=== PATIENT | male | born 1970 | race Caucasian/White ===

== ENCOUNTER 2019-02-13 03:44 | Inpatient (IN) | payer MEDICAID ==
--- NOTE | 2019-02-13 03:56 | C.PDOC ---
History Of Present Illness 48-year-old male presents to the emergency department with complaints of chest pain that started an hour prior to arrival. Patient qualifies the pain as a pressure towards the left side of his chest radiating into his left arm, assoc iated with mild shortness of breath. Patient noted recent intermittent occurrences of these symptoms over the past couple of days. EMS arrived on scene and noted ST elevation in V1 -V3 as well as depressions in 2, 3. Patient was given 325 MG aspirin as well as nitro x 3 with resolution of the pain. Patient noted the pain was initially 7 out of 10. Patient denies trauma, fall, recent surgery, or leg swelling. Time Seen by Provider: 02/13/19 03:51 Chief Complaint (Nursing): Chest Pain History Per: Patient History/Exam Limitations: no limitations Onset/Duration Of Symptoms: Days Current Symptoms Are (Timing): Still Present Quality: "Pain" Associated Symptoms: Dyspnea Past Medical History Reviewed: Historical Data, Nursing Documentation, Vital Signs - Medical History PMH: HTN, Hypercholesterolemia Surgical History: No Surg Hx Family History: States: No Known Family Hx - Social History Hx Alcohol Use: No Hx Substance Use: No - Immunization History Hx Tetanus Toxoid Vaccination: Yes Hx Influenza Vaccination: No Hx Pneumococcal Vaccination: No Review Of Systems Constitutional: Negative for: Fever, Chills Cardiovascular: Positive for: Chest Pain Respiratory: Positive for: Shortness of Breath. Negative for: Cough Gastrointestinal: Negative for: Nausea, Vomiting, Diarrhea Musculoskeletal: Negative for: Neck Pain, Shoulder Pain, Back Pain, Hand Pain Neurological: Negative for: Weakness, Numbness Physical Exam - Physical Exam Appears: Non-toxic, No Acute Distress Skin: Normal Color, Warm, Dry Head: Atraumatic, Normacephalic Eye(s): bilateral: Normal Inspection, PERRL, EOMI Nose: Normal Oral Mucosa: Moist Neck: Normal, Supple Chest: Symmetrical, No Tenderness Cardiovascular: Rhythm Regular (tachycardic), No Murmur Respiratory: Normal Breath Sounds, No Rales, No Rhonchi, No Wheezing Gastrointestinal/Abdominal: Soft, No Tenderness, No Guarding, No Rebound Extremity: Normal ROM Pulses: Left Radial: Normal, Right Radial: Normal Neurological/Psych: Oriented x3, Normal Speech, Normal Cognition ED Course And Treatment - Laboratory Results Result Diagrams: 02/15/19 05:58 02/15/19 05:58 Interpretation Of ECG: Sinus tachycardia at 105bpm. ST elevation in V1, V2. When compared to previous EKG performed by medics prior to aspirin being given, ST elevation in V1-V3 with depression in 2,3. Medical Decision Making Medical Decision Making: Impression: STEMI EKG: Sinus tachycardia at 105bpm. ST elevation in V1, V2. When compared to previous EKG performed by medics prior to aspirin being given, ST elevation in V1-V3 with depression in 2,3. Plan: CXR Heparin Brilinta [id number] Newton, he requests 180mg of Brilinta as well as heparin drip. States that he will take patient to crown and bridge dental lab technician. Pt in [place], agreeable to plan. Chest pain free while in ED, went to crown and bridge dental lab technician under Dr. Luis care Disposition - Disposition Disposition: HOSPITALIZED Disposition Time: 04:07 Condition: STABLE - Clinical Impression Clinical Impression: Acute myocardial infarction, STEMI (ST elevation myocardial infarction) - Scribe Statement The provider has reviewed the documentation as recorded by the Scribe (Leonidas Reyes) Provider Attestation: All medical record entries made by the Scribe were at my direction and personally dictated by me. I have reviewed the chart and agree that the record accurately reflects my personal performance of the history, physical exam, medical decision making, and the department course for this patient. I have also personally directed, reviewed, and agree with the discharge instructions and disposition.
[2019-02-13] MEDS ORDERED: Heparin25000 units/250ml 1/2NS 25,000 UNITS/250 ML BAG IV PRN (04:02)
[2019-02-13] MEDS ORDERED: Lidocaine Hydrochloride 15 ML INJ ONE (04:10)
[2019-02-13 04:25] LABS: BASO # 0.1 K/uL (0.0-0.2); BASO % 0.8 % (0.0-2.0); EOS # 0.2 K/uL (0.0-0.7); EOS % 1.7 % (0.0-4.0); LYMPH # 3.5 K/uL (1.0-4.3); LYMPH % 33.9 % (20.0-40.0); MEAN CELL VOLUME 84.9 fL (80.0-94.0); MEAN CORPUSCULAR HEMOGLOBIN 29.4 pg (27.0-31.0); MEAN CORPUSCULAR HGB CONC 34.6 g/dL (33.0-37.0); MEAN PLATELET VOLUME 7.8 fL (7.2-11.7); MONO # 0.6 K/uL (0.0-0.8); MONO % 6.2 % (0.0-10.0); NEUT % 57.4 % (50.0-75.0); RBC 5.1 Mil/uL (4.40-5.90); RED CELL DISTRIBUTION WIDTH 12.6 % (11.5-14.5); WHITE BLOOD COUNT 10.4 K/uL (4.8-10.8)
[2019-02-13 04:29] LABS: INR 1.2; PARTIAL THROMBOPLASTIN TIME 31.6 SECONDS (21-34)
[2019-02-13] MEDS ORDERED: Iodixanol 320 MG/ML 100 ML BOTTLE IV ONE (04:30)
[2019-02-13] MEDS ORDERED: Iohexol 350mgl/ml 50 ML ONE (04:31)
[2019-02-13] MEDS ORDERED: Iohexol 350mg/ml 100 ML ONE (04:31)
[2019-02-13] MEDS ORDERED: Midazolam 2 MG/2 ML VIAL ONE (04:31)
[2019-02-13 04:33] LABS: ALB/GLOB RATIO 1.4 (1.0-2.1); ALBUMIN 4.8 g/dL (3.5-5.0); ALT/SGPT 35 U/L (21-72); AST/SGOT 34 U/L (17-59); BLOOD UREA NITROGEN 13 mg/dL (9-20); CALCIUM 9.5 mg/dl (8.6-10.4); GFR NON-AFRICAN AMERICAN > 60
--- NOTE | 2019-02-13 05:02 | CP.PCM.PN ---
Subjective - Date & Time of Evaluation Date of Evaluation: 02/13/19 Time of Evaluation: 05:18 - Subjective Subjective: PGY-1 Code Heart Note for Dr. Oconnor Code heart called for patient in ED for ST elevations on EKG noted by paramedics prior to ED arrival - EMS initially called for chest pain. Patient noted to have ST elevations in V1-V3 and ST depressions in V4, V5. Heparin bolus administered in ED as well as Brilinta 180 mg loading dose. Cath team was contacted, with Aman Medina as interventional contractor [employer]omcorn threshing. Patient was prepared for cath and transported to laboratory aide. Patient to go to ICU following cath procedure on heparin drip. Vitals: 164/88 HR 108 98.4 F 15 95% room air Galen Hobbs, PGY-1 Objective - Vital Signs/Intake and Output Vital Signs (last 24 hours): Temp Pulse Resp BP Pulse Ox 98.4 F 108 H 15 164/88 H 95 02/13/19 03:50 02/13/19 03:50 02/13/19 03:50 02/13/19 03:50 02/13/19 03:50 - Medications Medications: Current Medications Heparin Sodium/Sodium Chloride (Heparin 65674 Units/250ml 1/2 Normal Saline) 25,000 units in 250 mls @ 11.594 mls/hr IV .[id number] PRN; Protocol PRN Reason: ADJUST RATE PER PROTOCOL - Labs Labs: 02/13/19 04:21 02/13/19 04:23 PT 13.0 SECONDS (9.7-12.2) H 02/13/19 04:23 INR 1.2 02/13/19 04:23 APTT 31.6 SECONDS (21-34) 02/13/19 04:23 - Constitutional Appears: Non-toxic, No Acute Distress - Head Exam Head Exam: ATRAUMATIC, NORMOCEPHALIC - Eye Exam Eye Exam: EOMI, Normal appearance - ENT Exam ENT Exam: Mucous Membranes Moist - Respiratory Exam Respiratory Exam: Clear to Ausculation Bilateral. absent: Rales, Wheezes - Cardiovascular Exam Cardiovascular Exam: REGULAR RHYTHM, +S1, +S2 - GI/Abdominal Exam GI & Abdominal Exam: Soft, Normal Bowel Sounds. absent: Tenderness - Extremities Exam Extremities Exam: absent: Pedal Edema, Tenderness - Neurological Exam Neurological Exam: Alert, Awake, Oriented x3 - Psychiatric Exam Psychiatric exam: Normal Affect, Normal Mood - Skin Skin Exam: Dry, Intact
--- NOTE | 2019-02-13 06:02 | CP.PCM.HP ---
<Galen Hobbs - Last Filed: 02/13/19 06:11> History of Present Illness - History of Present Illness History of Present Illness: PGY-1 History and Physical for Dr. Anastasia candelario called in ED for patient BIBEMS for chest pain. History obtained primary via ED staff and paramedics as patient being prepped for and en route to cath. Patient is a 48 year old male with no prior cardiac history who presented with chest pain which he had been experiencing on and off for two weeks. Patient was at a [employer], drinking whiskey, when he noticed sudden onset chest pain radiating to his right shoulder. EMS was contacted and patient was found to have ST elevations in anterior leads on initial EKG. Patient was prepared for cath and transported to cath lab radiology technician. Patient now in ICU following cath procedure on heparin drip. PMHx (per previous hospital records): HTN, HLD Present on Admission - Present on Admission Any Indicators Present on Admission: No Review of Systems - Review of Systems Systems not reviewed;Unavailable: Acuity of Condition Past Patient History - Past Social History Smoking Status: Never Smoked - CARDIAC Hx Hypercholesterolemia: Yes Hx Hypertension: Yes - PSYCHIATRIC Hx Substance Use: No Meds Allergies/Adverse Reactions: Allergies Allergy/AdvReac Type Severity Reaction Status Date / Time No Known Allergies Allergy Verified 02/13/19 03:56 Physical Exam - Constitutional Appears: Non-toxic, No Acute Distress - Head Exam Head Exam: ATRAUMATIC, NORMOCEPHALIC - Eye Exam Eye Exam: EOMI - ENT Exam ENT Exam: Mucous Membranes Moist - Respiratory Exam Respiratory Exam: Clear to Auscultation Bilateral, NORMAL BREATHING PATTERN. absent: Rhonchi, Wheezes - Cardiovascular Exam Cardiovascular Exam: RRR, +S1, +S2 - GI/Abdominal Exam GI & Abdominal Exam: Distended, Soft. absent: Tenderness - Extremities Exam Extremities exam: Positive for: normal inspection. Negative for: pedal edema, tenderness - Neurological Exam Neurological exam: Alert, CN II-XII Intact, Oriented x3 - Psychiatric Exam Psychiatric exam: Normal Affect, Normal Mood - Skin Skin Exam: Diaphoretic, Intact Results - Vital Signs Recent Vital Signs: Last Vital Signs Temp 98.4 F 02/13/19 03:50 Pulse 108 H 02/13/19 03:50 Resp 15 02/13/19 03:50 BP 164/88 H 02/13/19 03:50 Pulse Ox 95 02/13/19 03:50 - Labs Result Diagrams: 02/13/19 04:21 02/13/19 04:23 Labs: Laboratory Results - last 24 hr 02/13/19 02/13/19 02/13/19 04:21 04:23 04:23 WBC 10.4 RBC 5.10 Hgb 15.0 Hct 43.3 MCV 84.9 MCH 29.4 MCHC 34.6 RDW 12.6 Plt Count 317 MPV 7.8 Neut % (Auto) 57.4 Lymph % (Auto) 33.9 Carson % (Auto) 6.2 Eos % (Auto) 1.7 Baso % (Auto) 0.8 Neut # (Auto) 6.0 Lymph # (Auto) 3.5 Carson # (Auto) 0.6 Eos # (Auto) 0.2 Baso # (Auto) 0.1 PT 13.0 H INR 1.2 APTT 31.6 Sodium 141 Potassium 4.4 Chloride 101 Carbon Dioxide 25 Anion Gap 20 BUN 13 Creatinine 1.0 Est GFR ( Amer) > 60 Est GFR (Non-Af Amer) > 60 Random Glucose 158 H Calcium 9.5 Total Bilirubin 0.6 AST 34 ALT 35 Alkaline Phosphatase 87 Troponin I 0.0930 Total Protein 8.2 Albumin 4.8 Globulin 3.5 Albumin/Globulin Ratio 1.4 Blood Type Antibody Screen 02/13/19 04:34 WBC RBC Hgb Hct MCV MCH MCHC RDW Plt Count MPV Neut % (Auto) Lymph % (Auto) Carson % (Auto) Eos % (Auto) Baso % (Auto) Neut # (Auto) Lymph # (Auto) Carson # (Auto) Eos # (Auto) Baso # (Auto) PT INR APTT Sodium Potassium Chloride Carbon Dioxide Anion Gap BUN Creatinine Est GFR ( Amer) Est GFR (Non-Af Amer) Random Glucose Calcium Total Bilirubin AST ALT Alkaline Phosphatase Troponin I Total Protein Albumin Globulin Albumin/Globulin Ratio Blood Type O POSITIVE Antibody Screen Negative Assessment & Plan - Assessment and Plan (Free Text) Assessment: 48 year old male with PMHx HTN found to have anterior wall [place], s/p cardiac cath with Dr. Newton and placement of 3 stents Plan: Anterior wall ST elevation [place], s/p cardiac cath with 3 stents placed -[facility] [place] Heart Plant Breeder Scientist, Dr. Newton -Patient moved to ICU for post-cath monitoring -Initial troponins 0.093, but patient with acute ST elevations Meds -ASA 81 daily -Metoprolol 25 mg PO daily -Crestor 5 mg PO HS -Brilinta 90 mg PO BID -Heparin ggt PPx -DVT: Heparin ggt -GI: Protonix 40 mg PO daily Assessment and plan d/w Dr. Anastasia Hobbs, PGY-1 <Adithya Oconnor - Last Filed: 02/13/19 06:21> Results - Vital Signs Recent Vital Signs: Last Vital Signs Temp 97.1 F L 02/13/19 06:01 Pulse 108 H 02/13/19 03:50 Resp 15 02/13/19 03:50 BP 164/88 H 02/13/19 03:50 Pulse Ox 95 02/13/19 03:50 - Labs Result Diagrams: 02/13/19 04:21 02/13/19 04:23 Labs: Laboratory Results - last 24 hr 02/13/19 02/13/19 02/13/19 04:21 04:23 04:23 WBC 10.4 RBC 5.10 Hgb 15.0 Hct 43.3 MCV 84.9 MCH 29.4 MCHC 34.6 RDW 12.6 Plt Count 317 MPV 7.8 Neut % (Auto) 57.4 Lymph % (Auto) 33.9 Carson % (Auto) 6.2 Eos % (Auto) 1.7 Baso % (Auto) 0.8 Neut # (Auto) 6.0 Lymph # (Auto) 3.5 Carson # (Auto) 0.6 Eos # (Auto) 0.2 Baso # (Auto) 0.1 PT 13.0 H INR 1.2 APTT 31.6 Sodium 141 Potassium 4.4 Chloride 101 Carbon Dioxide 25 Anion Gap 20 BUN 13 Creatinine 1.0 Est GFR ( Amer) > 60 Est GFR (Non-Af Amer) > 60 Random Glucose 158 H Calcium 9.5 Total Bilirubin 0.6 AST 34 ALT 35 Alkaline Phosphatase 87 Troponin I 0.0930 Total Protein 8.2 Albumin 4.8 Globulin 3.5 Albumin/Globulin Ratio 1.4 Blood Type Antibody Screen 02/13/19 04:34 WBC RBC Hgb Hct MCV MCH MCHC RDW Plt Count MPV Neut % (Auto) Lymph % (Auto) Carson % (Auto) Eos % (Auto) Baso % (Auto) Neut # (Auto) Lymph # (Auto) Carson # (Auto) Eos # (Auto) Baso # (Auto) PT INR APTT Sodium Potassium Chloride Carbon Dioxide Anion Gap BUN Creatinine Est GFR ( Amer) Est GFR (Non-Af Amer) Random Glucose Calcium Total Bilirubin AST ALT Alkaline Phosphatase Troponin I Total Protein Albumin Globulin Albumin/Globulin Ratio Blood Type O POSITIVE Antibody Screen Negative Assessment & Plan - Date & Time Date: 02/13/19 (I have seen and examined the patient. I agree with the findings and plan of care as documented by Dr. Hobbs. Patient with acute TX. Code heart called in ED. Dr Newton called for cardiac intervention. 3 stents placed. Admit to ICU. As per Dr Newton, continue Brilinta, aspirin, crestor, heparin, metoprolol, and enalapril. Monitor for acute changes.) Time: 06:19 Attending/Attestation - Attestation I have personally seen and examined this patient.: Yes I have fully participated in the care of the patient.: Yes I have reviewed all pertinent clinical information: Yes
--- NOTE | 2019-02-13 06:14 | CP.PCM.CON ---
History of Present Illness - History of Present Illness History of Present Illness: PGY-1 ICU Consult Note Code heart called in ED for patient BIBEMS for chest pain. History obtained primary via ED staff and paramedics as patient being prepped for and en route to cath. Patient is a 48 year old male with no prior cardiac history who presented with chest pain which he had been experiencing on and off for two weeks. Patient was at a [employer] party, drinking whiskey, when he noticed sudden onset chest pain radiating to his right shoulder. EMS was contacted and patient was found to have ST elevations in anterior leads on initial EKG. Patient was prepared for cath and transported to clinical laboratory scientist. Patient now in ICU following cath procedure on heparin drip. PMHx (per previous hospital records): HTN, HLD Review of Systems - Review of Systems Systems not reviewed;Unavailable: Acuity of Condition Past Patient History - Past Social History Smoking Status: Never Smoked - CARDIAC Hx Hypercholesterolemia: Yes Hx Hypertension: Yes - PSYCHIATRIC Hx Substance Use: No Meds Allergies/Adverse Reactions: Allergies Allergy/AdvReac Type Severity Reaction Status Date / Time No Known Allergies Allergy Verified 02/13/19 03:56 - Medications Medications: Current Medications Aspirin (Aspirin Chewable) 81 mg PO DAILY [facility] Enalapril Maleate (Vasotec) 5 mg PO DAILY [facility] Heparin Sodium/Sodium Chloride (Heparin 97040 Units/250ml 1/2 Normal Saline) 25,000 units in 250 mls @ 11.594 mls/hr IV .[id number] PRN; Protocol PRN Reason: ADJUST RATE PER PROTOCOL Sodium Chloride (Sodium Chloride 0.9%) 500 mls @ 50 mls/hr IV .Q10H [facility] Stop: 02/13/19 16:01 Metoprolol Tartrate (Lopressor) 25 mg PO BID [facility] Pantoprazole Sodium (Protonix Ec Tab) 40 mg PO DAILY [facility] Rosuvastatin Calcium (Crestor) 5 mg PO HS [facility] Ticagrelor (Brilinta) 90 mg PO BID [facility] Physical Exam - Constitutional Additional comments: - Constitutional Appears: Non-toxic, No Acute Distress - Head Exam Head Exam: ATRAUMATIC, NORMOCEPHALIC - Eye Exam Eye Exam: EOMI - ENT Exam ENT Exam: Mucous Membranes Moist - Respiratory Exam Respiratory Exam: Clear to Auscultation Bilateral, NORMAL BREATHING PATTERN. absent: Rhonchi, Wheezes - Cardiovascular Exam Cardiovascular Exam: RRR, +S1, +S2 - GI/Abdominal Exam GI & Abdominal Exam: Distended, Soft. absent: Tenderness - Extremities Exam Extremities exam: Positive for: normal inspection. Negative for: pedal edema, tenderness - Neurological Exam Neurological exam: Alert, CN II-XII Intact, Oriented x3 - Psychiatric Exam Psychiatric exam: Normal Affect, Normal Mood - Skin Skin Exam: Diaphoretic, Intact Results - Vital Signs Recent Vital Signs: Last Vital Signs Temp 97.1 F L 02/13/19 06:01 Pulse 108 H 02/13/19 03:50 Resp 15 02/13/19 03:50 BP 164/88 H 02/13/19 03:50 Pulse Ox 95 02/13/19 03:50 - Labs Result Diagrams: 02/13/19 04:21 02/13/19 04:23 Labs: Laboratory Results - last 24 hr 02/13/19 02/13/19 02/13/19 04:21 04:23 04:23 WBC 10.4 RBC 5.10 Hgb 15.0 Hct 43.3 MCV 84.9 MCH 29.4 MCHC 34.6 RDW 12.6 Plt Count 317 MPV 7.8 Neut % (Auto) 57.4 Lymph % (Auto) 33.9 Wolfe % (Auto) 6.2 Eos % (Auto) 1.7 Baso % (Auto) 0.8 Neut # (Auto) 6.0 Lymph # (Auto) 3.5 Wolfe # (Auto) 0.6 Eos # (Auto) 0.2 Baso # (Auto) 0.1 PT 13.0 H INR 1.2 APTT 31.6 Sodium 141 Potassium 4.4 Chloride 101 Carbon Dioxide 25 Anion Gap 20 BUN 13 Creatinine 1.0 Est GFR ( Amer) > 60 Est GFR (Non-Af Amer) > 60 Random Glucose 158 H Calcium 9.5 Total Bilirubin 0.6 AST 34 ALT 35 Alkaline Phosphatase 87 Troponin I 0.0930 Total Protein 8.2 Albumin 4.8 Globulin 3.5 Albumin/Globulin Ratio 1.4 Blood Type Antibody Screen 02/13/19 04:34 WBC RBC Hgb Hct MCV MCH MCHC RDW Plt Count MPV Neut % (Auto) Lymph % (Auto) Wolfe % (Auto) Eos % (Auto) Baso % (Auto) Neut # (Auto) Lymph # (Auto) Wolfe # (Auto) Eos # (Auto) Baso # (Auto) PT INR APTT Sodium Potassium Chloride Carbon Dioxide Anion Gap BUN Creatinine Est GFR ( Amer) Est GFR (Non-Af Amer) Random Glucose Calcium Total Bilirubin AST ALT Alkaline Phosphatase Troponin I Total Protein Albumin Globulin Albumin/Globulin Ratio Blood Type O POSITIVE Antibody Screen Negative Assessment & Plan - Assessment and Plan (Free Text) Assessment: Assessment: 48 year old male with PMHx HTN found to have anterior wall [place], s/p cardiac cath with Dr. Newton and placement of 3 stents Plan: Cardio Anterior wall ST elevation [place], s/p cardiac cath with 3 stents placed -[facility] [place] [facility] Supervisor [employer], Dr. Newton -Patient moved to ICU for post-cath monitoring -Initial troponins 0.093, but patient with acute ST elevations Meds -ASA 81 daily -Metoprolol 25 mg PO daily -Crestor 5 mg PO HS -Brilinta 90 mg PO BID -Heparin ggt Pulm -Maintain spO2 >95% Nephro -Is and Os Neuro A and O x 3 GI -GI ppx - protonix 40 mg PO daily -Monitor BMs PPx -DVT: Heparin ggt -GI: Protonix 40 mg PO daily Assessment and plan d/w Dr. Anastasia Hobbs, PGY-1
--- NOTE | 2019-02-13 06:44 | CP.PCM.PN ---
Subjective - Date & Time of Evaluation Date of Evaluation: 02/13/19 Time of Evaluation: 06:39 - Subjective Subjective: PGY-1 Code Heart Note Patient taken to ICU following cardiac cath with Dr. Newton. Patient c/o worsened chest pain following cath. Repeat EKG showed large, diffuse ST elevations in v1- v4, v1, v2, avL with reciprocal depressions in remaining leads. Cardiac cath team re-activated and patient brought to analytical lab analyst Galen Hobbs, PGY-1 Objective - Vital Signs/Intake and Output Vital Signs (last 24 hours): Temp Pulse Resp BP Pulse Ox 97.1 F L 108 H 15 164/88 H 95 02/13/19 06:01 02/13/19 03:50 02/13/19 03:50 02/13/19 03:50 02/13/19 03:50 - Medications Medications: Current Medications Aspirin (Aspirin Chewable) 81 mg PO DAILY [facility] Enalapril Maleate (Vasotec) 5 mg PO DAILY [facility] Heparin Sodium/Sodium Chloride (Heparin 00923 Units/250ml 1/2 Normal Saline) 25,000 units in 250 mls @ 11.594 mls/hr IV .[id number] PRN; Protocol PRN Reason: ADJUST RATE PER PROTOCOL Sodium Chloride (Sodium Chloride 0.9%) 500 mls @ 50 mls/hr IV .Q10H [facility] Stop: 02/13/19 16:01 Metoprolol Tartrate (Lopressor) 25 mg PO BID [facility] Morphine Sulfate (Morphine) 2 mg IM Q4 PRN PRN Reason: Pain, severe (8-10) Pantoprazole Sodium (Protonix Ec Tab) 40 mg PO DAILY [facility] Rosuvastatin Calcium (Crestor) 5 mg PO HS [facility] Ticagrelor (Brilinta) 90 mg PO BID [facility] - Labs Labs: 02/13/19 04:21 02/13/19 04:23 PT 13.0 SECONDS (9.7-12.2) H 02/13/19 04:23 INR 1.2 02/13/19 04:23 APTT 31.6 SECONDS (21-34) 02/13/19 04:23 - Constitutional Appears: Non-toxic, No Acute Distress - Head Exam Head Exam: ATRAUMATIC, NORMOCEPHALIC - Eye Exam Eye Exam: EOMI, Normal appearance - ENT Exam ENT Exam: Mucous Membranes Moist - Respiratory Exam Respiratory Exam: Clear to Ausculation Bilateral, NORMAL BREATHING PATTERN. absent: Rhonchi, Wheezes - Cardiovascular Exam Cardiovascular Exam: REGULAR RHYTHM, +S1, +S2 - GI/Abdominal Exam GI & Abdominal Exam: Soft, Normal Bowel Sounds. absent: Tenderness - Neurological Exam Neurological Exam: Alert, Awake, Oriented x3 - Psychiatric Exam Psychiatric exam: Normal Affect, Normal Mood - Skin Skin Exam: Diaphoretic, Normal Color
[2019-02-13] MEDS ORDERED: Lidocaine Hydrochloride 10 ML INJ ONE (07:03)
[2019-02-13] MEDS ORDERED: Eptifibatide 20 mg/10mL Inj IVP ONE (07:46)
[2019-02-13] MEDS: Nitroglycerin 50mg in D5W 50 MG/250 ML BOTTLE IV SCH (08:00)
[2019-02-13] MEDS: Eptifibatide 0.75 mg/ml 75 MG/100 ML BAG IV SCH ×3 (08:00→19:30)
[2019-02-13] MEDS ORDERED: Morphine 4 MG/ML VIAL IV ONE (08:15)
--- NOTE | 2019-02-13 08:49 | CP.PCM.PN ---
Subjective - Date & Time of Evaluation Date of Evaluation: 02/13/19 Time of Evaluation: 08:35 - Subjective Subjective: Medical Attending Note: patient seen and examined this morning. Patient came back from [address] [place] [address] this morning. Patient denies headache, improved chest pain, denies palpitations, denies shortness of breathe, denies abdominal pain, reports he needs to make a bowel movement. I spoke with sister, Keira, age 39 over the phone, updated her in regards to her brother's condition. His and daughter are coming in later today. Pending official cardiology notes. Patient has 2 stents involving the LAD. Patient is former smoker, (age [age] more than a pack a day), hypertension, lipid disorder, and mother has had recent heart surgery about one month ago involving the valve. patient is from [facility]) visiting his daughter over the weekend for republican. Objective - Vital Signs/Intake and Output Vital Signs (last 24 hours): Temp Pulse Resp BP Pulse Ox 97.2 F L 102 H 28 H 145/96 H 97 02/13/19 06:26 02/13/19 08:30 02/13/19 08:30 02/13/19 08:25 02/13/19 08:30 Intake and Output: 02/13/19 02/13/19 06:59 18:59 Intake Total 0 0 Output Total 0 0 Balance 0 0 - Medications Medications: Current Medications Aspirin (Aspirin Chewable) 81 mg PO DAILY [facility] Enalapril Maleate (Vasotec) 5 mg PO DAILY [facility] Heparin Sodium/Sodium Chloride (Heparin 48032 Units/250ml 1/2 Normal Saline) 25,000 units in 250 mls @ 11.594 mls/hr IV .[id number] PRN; Protocol PRN Reason: ADJUST RATE PER PROTOCOL Sodium Chloride (Sodium Chloride 0.9%) 500 mls @ 50 mls/hr IV .Q10H [facility] Stop: 02/13/19 16:01 Eptifibatide (Integrilin) 75 mg in 100 mls @ 17.403 mls/hr IV .Q5H45M [facility] Stop: 02/14/19 07:46 Nitroglycerin/Dextrose (Nitroglycerin 50 Mg/250 Ml D5w) 50 mg in 250 mls @ 1.5 mls/hr IV .Q24H [facility]; Protocol Metoprolol Tartrate (Lopressor) 25 mg PO BID [facility] Morphine Sulfate (Morphine) 2 mg IM Q4 PRN PRN Reason: Pain, severe (8-10) Pantoprazole Sodium (Protonix Ec Tab) 40 mg PO DAILY [facility] Rosuvastatin Calcium (Crestor) 5 mg PO HS [facility] Ticagrelor (Brilinta) 90 mg PO BID [facility] - Labs Labs: 02/13/19 04:21 02/13/19 04:23 PT 13.0 SECONDS (9.7-12.2) H 02/13/19 04:23 INR 1.2 02/13/19 04:23 APTT 31.6 SECONDS (21-34) 02/13/19 04:23 - Constitutional Appears: Non-toxic, No Acute Distress - Head Exam Head Exam: NORMAL INSPECTION - Eye Exam Eye Exam: EOMI - ENT Exam ENT Exam: Mucous Membranes Moist - Respiratory Exam Respiratory Exam: Clear to Ausculation Bilateral, NORMAL BREATHING PATTERN. absent: Rales, Rhonchi, Wheezes - Cardiovascular Exam Cardiovascular Exam: REGULAR RHYTHM, +S1, +S2 - GI/Abdominal Exam GI & Abdominal Exam: Soft, Normal Bowel Sounds. absent: Distended, Firm, Rigid, Tenderness, Rebound - Extremities Exam Extremities Exam: absent: Pedal Edema, Tenderness Additional comments: groin site #1: clean/dry/intact, no tenderness on palpation groin site #2: clean/dry/intact, no tenderness on palpation - Neurological Exam Neurological Exam: Alert, Awake, Oriented x3 - Psychiatric Exam Psychiatric exam: Normal Affect, Normal Mood - Skin Skin Exam: Dry, Normal Color, Warm Assessment and Plan (1) ST elevation (STEMI) myocardial infarction involving left anterior descending coronary artery Status: Acute (2) Unstable angina Status: Acute (3) Lipid disorder Status: Acute (4) Hypertension Status: Acute (5) Former smoker Status: Acute (6) Family history of heart valve abnormality Status: Acute (7) Prophylactic measure Status: Acute Attending/Attestation - Attestation I have personally seen and examined this patient.: Yes I have fully participated in the care of the patient.: Yes I have reviewed all pertinent clinical information, including history, physical exam and plan: Yes Notes (Text): Assessment/plan Unstable Angina ST Elevation Assessment/Plan Risk factors: Family of hx of heart problems (mother),former smoker, hypertension, lipid disorder, daily aspirin Cardiology data control assistant (Dr. Newton) on consult Code heart 02/13/19 in ambulance, received 3 NTG and asa 325 per ED triage note, in ED, Heparin bolus, brilinta loading dose, nitro per code heart protocol Admitted to ICU Required 2 caths post cath one; worsening ST Elevation prompting second cath LAD with HENRY (2) pending official cath reports check cardiac risk factors: hgba1c, tsh, lipid disorder,UDS Post cath 2: Patient is on integrilin drip, nitro drip, heparin drip Aspirin 81mg PO daily Vasotec 5mg PO daily Morphine 2mg IVP Q4h PRN severe pain Crestor 5mg POqHS Brilinta 90mg PO bid Echo ordered Hypertension Assessment/Plan Lopressor 25mg PO BID Vasotec 5mg PO daily Hyperglycemia Assessment/plan Hgba1c Lipid disorder Assessment/Plan Lipid panel Statin therapy (CAD) Former Smoker Assessment/Plan Smoked from age [age]; patient reports he no longer smokes patient understands the risk associated with smoking including cancer risk, premature aging, heart disease and ultimately Family hx of heart Problems Assessment/Plan Mother recovering from valve surgery about one month ago History of Allergies Assessment/Plan Montelukast 10mg Po daily patient reports he does not use a nebulizer Prophylactic measure Post cath #2 on integrilin drip and nitro drip, heparin drip Pepcid 20mg PO BID (not protonix given has stents placed) Further management per ICU and cardiology; Follow-up official cath reports.
--- NOTE | 2019-02-13 09:09 | CP.CCUPN ---
CCU Subjective - Physician Review Events Since Last Encounter (Free Text): 02/13/19 09:09 Patient is a 48-year-old male with a history of hypertension, hyperlipidemia admitted initially to the intensive care unit following the code heart. Patient was having symptoms of chest pain radiating to the right side of the stephanie ulder on and off, excruciating pain was noted while he was drinking whiskey. The patient was experiencing pain on and off for 2 weeks. EMS arrived, and they found to have ST elevation, code heart was initiated by the emergency room. Patient underwent cardiac procedure as an emergency initially. After he came to the emergency room again patient had a sudden onset of worsening pain, and reevaluation was done by the machine trimmer again. Patient underwent a second angiogram. Initially the first time patient had a LAD occlusion 100% and stenting was done. Second time again patient underwent procedure and they placed a second stent in the proximal LAD, suspected diagonal dissection Now patient in the ICU, he is doing well. Minimal discomfort noted. But EKG changes he is improving Past medical history: Hypertension hyperlipidemia former smoker Surgical history none Allergies no known drug allergy Family history significant for heart disease Review of system: Patient now complaining of minimal headache and mild discomfort of chest otherwise nonspecific. He is feeling much better than this morning. On examination: Vital signs are stable. Chest bilateral good air entry Heart sounds are regular Nontender abdomen. No pedal edema noted. Patient has a dressing of the femoral joint on both groin region Peripheral pulses are good Patient's labs reviewed Nonspecific. Chest x-ray no acute changes noted Assessment and recommendation: Patient is a 48-year-old male with a history of former smoker, hypertension hyperlipidemia admitted with the ST elevation RI. Chest pain. LAD occlusion. Status post intervention and stent placement. Currently doing well. We will continue to monitor. He is on Integrilin drip, nitro drip. On beta-lai antiplatelets and anticholesterol medications. We will monitor the patient in the intensive care unit and will follow the patient CCU Objective - Vital Signs / Intake & Output Vital Signs (Last 4 hours): Vital Signs Temp Pulse Pulse Resp BP Pulse Ox 02/13/19 08:55 74 18 136/84 97 02/13/19 08:50 81 16 97 02/13/19 08:41 80 19 135/95 H 02/13/19 08:40 106 H 27 H 135/95 H 97 05/12/19 08:30 102 H 28 H 97 02/13/19 08:25 110 H 22 145/96 H 99 02/13/19 08:20 104 H 10 L 99 02/13/19 08:11 109 H 22 138/93 H 02/13/19 08:10 106 H 23 138/93 H 99 02/13/19 08:02 84 19 143/90 97 02/13/19 08:00 94 H 16 02/13/19 06:31 90 21 154/106 H 100 02/13/19 06:30 91 H 14 100 02/13/19 06:26 97.2 F L 102 H 23 169/119 H 02/13/19 06:25 89 20 147/96 H 100 02/13/19 06:23 90 19 154/103 H 100 02/13/19 06:20 94 H 26 H 100 02/13/19 06:11 97.2 F L 91 H 20 165/103 H 02/13/19 06:10 105 H 13 169/119 H 100 02/13/19 06:01 97.1 F L 02/13/19 06:00 91 H 12 95 02/13/19 05:56 97.2 F L 02/13/19 05:55 80 02/13/19 05:53 92 H 19 165/103 H 99 02/13/19 05:52 99 H 13 160/101 H 99 02/13/19 05:51 91 H 99 Intake and Output (Last 8hrs): Intake & Output 02/12/19 02/13/19 02/13/19 22:59 06:59 14:59 Intake Total 0 0 Output Total 0 0 Balance 0 0 Weight 239 lb 12.8 oz Intake: Oral 0 0 Output: Urine 0 0 Urine, Voided 0 0 - Medications Active Medications: Active Medications Generic Name Dose Route Start Last Admin Trade Name Freq PRN Reason Stop Dose Admin Aspirin 81 mg 02/13/19 10:00 Aspirin Chewable PO DAILY [facility] Enalapril Maleate 5 mg 02/13/19 10:00 Vasotec PO DAILY [facility] Heparin Sodium/Sodium Chloride 25,000 units in 250 mls @ 11.594 mls/hr 02/13/19 04:02 Heparin 06929 Units/250ml 1/2 Normal Saline IV .[id number] PRN ADJUST RATE PER PROTOCOL Protocol 12 UNITS/KG/HR Sodium Chloride 500 mls @ 50 mls/hr 02/13/19 06:00 Sodium Chloride 0.9% IV 02/13/19 16:01 .Q10H [facility] Eptifibatide 75 mg in 100 mls @ 17.403 mls/hr 02/13/19 07:45 Integrilin IV 02/14/19 07:46 .Q5H45M [facility] 2 MCG/KG/MIN Nitroglycerin/Dextrose 50 mg in 250 mls @ 1.5 mls/hr 02/13/19 08:00 Nitroglycerin 50 Mg/250 Ml D5w IV .Q24H [facility] Protocol 5 MCG/MIN Metoprolol Tartrate 25 mg 02/13/19 10:00 Lopressor PO BID [facility] Morphine Sulfate 2 mg 02/13/19 06:14 Morphine IM Q4 PRN Pain, severe (8-10) Pantoprazole Sodium 40 mg 02/13/19 10:00 Protonix Ec Tab PO DAILY [facility] Rosuvastatin Calcium 5 mg 02/13/19 22:00 Crestor PO HS [facility] Ticagrelor 90 mg 02/13/19 10:00 Brilinta PO BID [facility] - Patient Studies Lab Studies: Lab Studies 02/13/19 02/13/19 02/13/19 Range/Units 04:34 04:23 04:23 WBC (4.8-10.8) K/uL RBC (4.40-5.90) Mil/uL Hgb (12.0-18.0) g/dL Hct (35.0-51.0) % MCV (80.0-94.0) fL MCH (27.0-31.0) pg MCHC (33.0-37.0) g/dL RDW (11.5-14.5) % Plt Count (130-400) K/uL MPV (7.2-11.7) fL Neut % (Auto) (50.0-75.0) % Lymph % (Auto) (20.0-40.0) % [place] % (Auto) (0.0-10.0) % Eos % (Auto) (0.0-4.0) % Baso % (Auto) (0.0-2.0) % Neut # (Auto) (1.8-7.0) K/uL Lymph # (Auto) (1.0-4.3) K/uL [place] # (Auto) (0.0-0.8) K/uL Eos # (Auto) (0.0-0.7) K/uL Baso # (Auto) (0.0-0.2) K/uL PT 13.0 H (9.7-12.2) SECONDS INR 1.2 APTT 31.6 (21-34) SECONDS Sodium 141 (132-148) mmol/L Potassium 4.4 (3.6-5.2) mmol/L Chloride 101 (98-107) mmol/L Carbon Dioxide 25 (22-30) mmol/L Anion Gap 20 (10-20) BUN 13 (9-20) mg/dL Creatinine 1.0 (0.8-1.5) mg/dL Est GFR ( Amer) > 60 Est GFR (Non-Af Amer) > 60 Random Glucose 158 H (75-110) mg/dL Calcium 9.5 (8.6-10.4) mg/dl Total Bilirubin 0.6 (0.2-1.3) mg/dL AST 34 (17-59) U/L ALT 35 (21-72) U/L Alkaline Phosphatase 87 (38-126) U/L Troponin I 0.0930 (0.00-0.120) ng/mL Total Protein 8.2 (6.3-8.3) g/dL Albumin 4.8 (3.5-5.0) g/dL Globulin 3.5 (2.2-3.9) gm/dL Albumin/Globulin Ratio 1.4 (1.0-2.1) Blood Type O POSITIVE Antibody Screen Negative 02/13/19 Range/Units 04:21 WBC 10.4 (4.8-10.8) K/uL RBC 5.10 (4.40-5.90) Mil/uL Hgb 15.0 (12.0-18.0) g/dL Hct 43.3 (35.0-51.0) % MCV 84.9 (80.0-94.0) fL MCH 29.4 (27.0-31.0) pg MCHC 34.6 (33.0-37.0) g/dL RDW 12.6 (11.5-14.5) % Plt Count 317 (130-400) K/uL MPV 7.8 (7.2-11.7) fL Neut % (Auto) 57.4 (50.0-75.0) % Lymph % (Auto) 33.9 (20.0-40.0) % [place] % (Auto) 6.2 (0.0-10.0) % Eos % (Auto) 1.7 (0.0-4.0) % Baso % (Auto) 0.8 (0.0-2.0) % Neut # (Auto) 6.0 (1.8-7.0) K/uL Lymph # (Auto) 3.5 (1.0-4.3) K/uL [place] # (Auto) 0.6 (0.0-0.8) K/uL Eos # (Auto) 0.2 (0.0-0.7) K/uL Baso # (Auto) 0.1 (0.0-0.2) K/uL PT (9.7-12.2) SECONDS INR APTT (21-34) SECONDS Sodium (132-148) mmol/L Potassium (3.6-5.2) mmol/L Chloride (98-107) mmol/L Carbon Dioxide (22-30) mmol/L Anion Gap (10-20) BUN (9-20) mg/dL Creatinine (0.8-1.5) mg/dL Est GFR ( Amer) Est GFR (Non-Af Amer) Random Glucose (75-110) mg/dL Calcium (8.6-10.4) mg/dl Total Bilirubin (0.2-1.3) mg/dL AST (17-59) U/L ALT (21-72) U/L Alkaline Phosphatase (38-126) U/L Troponin I (0.00-0.120) ng/mL Total Protein (6.3-8.3) g/dL Albumin (3.5-5.0) g/dL Globulin (2.2-3.9) gm/dL Albumin/Globulin Ratio (1.0-2.1) Blood Type Antibody Screen Laboratory Results - last 24 hr 02/13/19 02/13/19 02/13/19 04:21 04:23 04:23 WBC 10.4 RBC 5.10 Hgb 15.0 Hct 43.3 MCV 84.9 MCH 29.4 MCHC 34.6 RDW 12.6 Plt Count 317 MPV 7.8 Neut % (Auto) 57.4 Lymph % (Auto) 33.9 [place] % (Auto) 6.2 Eos % (Auto) 1.7 Baso % (Auto) 0.8 Neut # (Auto) 6.0 Lymph # (Auto) 3.5 [place] # (Auto) 0.6 Eos # (Auto) 0.2 Baso # (Auto) 0.1 PT 13.0 H INR 1.2 APTT 31.6 Sodium 141 Potassium 4.4 Chloride 101 Carbon Dioxide 25 Anion Gap 20 BUN 13 Creatinine 1.0 Est GFR ( Amer) > 60 Est GFR (Non-Af Amer) > 60 Random Glucose 158 H Calcium 9.5 Total Bilirubin 0.6 AST 34 ALT 35 Alkaline Phosphatase 87 Troponin I 0.0930 Total Protein 8.2 Albumin 4.8 Globulin 3.5 Albumin/Globulin Ratio 1.4 Blood Type Antibody Screen 02/13/19 04:34 WBC RBC Hgb Hct MCV MCH MCHC RDW Plt Count MPV Neut % (Auto) Lymph % (Auto) [place] % (Auto) Eos % (Auto) Baso % (Auto) Neut # (Auto) Lymph # (Auto) [place] # (Auto) Eos # (Auto) Baso # (Auto) PT INR APTT Sodium Potassium Chloride Carbon Dioxide Anion Gap BUN Creatinine Est GFR ( Amer) Est GFR (Non-Af Amer) Random Glucose Calcium Total Bilirubin AST ALT Alkaline Phosphatase Troponin I Total Protein Albumin Globulin Albumin/Globulin Ratio Blood Type O POSITIVE Antibody Screen Negative EKG/Cardiology Studies: Cardiology / EKG Studies 02/13/19 03:50 ELECTROCARDIOGRAM Stat Comment: Mode Of Transportation: BED Reason For Exam: chest pain 02/13/19 03:59 ELECTROCARDIOGRAM Stat Comment: Mode Of Transportation: BED Reason For Exam: chest pain 02/13/19 06:23 EKG [ELECTROCARDIOGRAM] Stat Comment: Mode Of Transportation: PORTABLE Reason For Exam: Chest Pain 02/13/19 08:43 EKG [ELECTROCARDIOGRAM] Stat Comment: Mode Of Transportation: Reason For Exam: post cath Critical Care Progress Note - Nutrition Nutrition: Nutrition Category Date Time Status Heart Healthy Diet [DIET] Diets 02/13/19 Lunch Active
[2019-02-13] MEDS ORDERED: Pantoprazole 40 mg EC Tab PO SCH (10:00)
[2019-02-13 10:03] LABS: BARBITURATES, UR NEGATIVE (NEGATIVE); BENZODIAZEPINES, UR NEGATIVE (NEGATIVE); PHENCYCLIDINE, UR NEGATIVE (NEGATIVE)
[2019-02-13] MEDS: Sodium Chloride 0.9% 500 ML IV SCH ×2 (10:15→18:22)
[2019-02-13 10:18] LABS: OPIATES, UR POSITIVE (NEGATIVE)
[2019-02-13 11:26] LABS: CK-MB 75.2 ng/mL (0.0-3.38); TROPONIN I 17.7 ng/mL (0.00-0.120)
--- NOTE | 2019-02-13 15:42 | RAD ---
Date of service: 02/13/2019 HISTORY: chest pain COMPARISON: None available. TECHNIQUE: 1 view obtained. FINDINGS: LUNGS: Poor inspiration with low lung volumes common crowded bronchovascular markings and mild bibasilar atelectasis PLEURA: No significant pleural effusion identified, no pneumothorax apparent. CARDIOVASCULAR: No aortic atherosclerotic calcification present. Normal cardiac size. No pulmonary vascular congestion. OSSEOUS STRUCTURES: No significant abnormalities. VISUALIZED UPPER ABDOMEN: Normal. OTHER FINDINGS: None. IMPRESSION: Poor inspiration with low lung volumes common crowded bronchovascular markings and mild bibasilar atelectasis
[2019-02-13 18:48] LABS: BASO # 0.1 K/uL (0.0-0.2); BASO % 0.6 % (0.0-2.0); EOS % 0.2 % (0.0-4.0); HEMOGLOBIN 13.6 g/dL (12.0-18.0); LYMPH % 11.7 % (20.0-40.0); MEAN CELL VOLUME 84.8 fL (80.0-94.0); MEAN CORPUSCULAR HEMOGLOBIN 28.8 pg (27.0-31.0); MEAN PLATELET VOLUME 7.6 fL (7.2-11.7); MONO # 1.4 K/uL (0.0-0.8); MONO % 8.2 % (0.0-10.0); NEUT # 13.5 K/uL (1.8-7.0); NEUT % 79.3 % (50.0-75.0); RBC 4.72 Mil/uL (4.40-5.90); RED CELL DISTRIBUTION WIDTH 12.8 % (11.5-14.5); WHITE BLOOD COUNT 17.1 K/uL (4.8-10.8)
[2019-02-13 19:18] LABS: ALB/GLOB RATIO 1.3 (1.0-2.1); ALBUMIN 4.2 g/dL (3.5-5.0); ALT/SGPT 53 U/L (21-72); AST/SGOT 191 U/L (17-59); BLOOD UREA NITROGEN 11 mg/dL (9-20); CALCIUM 9.3 mg/dl (8.6-10.4); CK-MB 124 ng/mL (0.0-3.38); GFR NON-AFRICAN AMERICAN > 60
[2019-02-14] MEDS: Eptifibatide 0.75 mg/ml 75 MG/100 ML BAG IV SCH ×2 (01:30→06:45)
[2019-02-14 05:45] LABS: BASO # 0.1 K/uL (0.0-0.2); BASO % 0.5 % (0.0-2.0); EOS # 0.1 K/uL (0.0-0.7); EOS % 0.4 % (0.0-4.0); HEMOGLOBIN 13.4 g/dL (12.0-18.0); LYMPH # 2.4 K/uL (1.0-4.3); LYMPH % 15.2 % (20.0-40.0); MEAN CELL VOLUME 85.6 fL (80.0-94.0); MEAN CORPUSCULAR HEMOGLOBIN 28.3 pg (27.0-31.0); MEAN PLATELET VOLUME 7.5 fL (7.2-11.7); MONO # 1.5 K/uL (0.0-0.8); MONO % 9.1 % (0.0-10.0); NEUT % 74.8 % (50.0-75.0); RBC 4.74 Mil/uL (4.40-5.90); RED CELL DISTRIBUTION WIDTH 13.2 % (11.5-14.5); WHITE BLOOD COUNT 16.1 K/uL (4.8-10.8)
[2019-02-14 05:58] LABS: ALB/GLOB RATIO 1.5 (1.0-2.1); ALBUMIN 4.1 g/dL (3.5-5.0); ALT/SGPT 52 U/L (21-72); AST/SGOT 175 U/L (17-59); BLOOD UREA NITROGEN 11 mg/dL (9-20); CALCIUM 8.7 mg/dl (8.6-10.4); GFR NON-AFRICAN AMERICAN > 60
[2019-02-14 06:11] LABS: CK-MB 66.2 ng/mL (0.0-3.38)
[2019-02-14] MEDS: Nitroglycerin 50mg in D5W 50 MG/250 ML BOTTLE IV SCH (08:10)
--- NOTE | 2019-02-14 11:05 | CP.CCUPN ---
CCU Subjective - Physician Review Subjective (Free Text): 02/14/19 10:57 PGY-1 Critical Care Progress Note for Dr. Lay Patient seen and examined at bedside this AM. 48 yo male with pmhx of HTN, HLD initially admitted to ICU following CODE heart STEMI LAD occlusion 100%, s/p HENRY placement worsening ST elevations post-cath #1 Underwent second procedure, placed 2nd HENRY in proximal LAD , suspected diagonal dissection In no acute distress this AM, no chest pain/palpitations/sob Remains on integrillin gtt, nitro gtt c/w ASA, BB, ACEi, statin F/U ECHO, further Cardiac recs Continue to monitor CCU Objective - Vital Signs / Intake & Output Vital Signs (Last 4 hours): Vital Signs Temp Pulse Resp BP Pulse Ox 02/14/19 10:39 108/69 02/14/19 09:36 108/73 02/14/19 09:32 86 21 108/73 02/14/19 09:30 85 17 97 02/14/19 09:02 90 20 113/67 02/14/19 09:00 101 H 20 97 02/14/19 08:32 88 15 105/69 97 02/14/19 08:30 91 H 17 97 02/14/19 08:10 80 20 102/69 98 02/14/19 08:08 98.1 F 02/14/19 08:02 78 18 102/69 02/14/19 07:35 87 16 105/70 97 02/14/19 07:30 88 15 98 02/14/19 07:05 84 15 112/75 98 02/14/19 07:00 82 21 98 Intake and Output (Last 8hrs): Intake & Output 02/13/19 02/14/19 02/14/19 22:59 06:59 14:59 Intake Total 642.2 612.7 44.4 Output Total 550 550 520 Balance 92.2 62.7 -475.6 Weight 108.1 kg Intake: IV 64 43 15 Intake, IV Amount 578.2 569.7 29.4 Antecubital 139.2 139.2 17.4 Left Hand 39 30.5 12 Left Proximal Port 400 400 Antecubital Output: Urine 550 550 520 Urine, Voided 550 550 520 Other: # Voids Urine, Voided 1 # Bowel Movements 1 - Physical Exam Head: Positive for: Atraumatic, Normocephalic Pupils: Positive for: PERRL Extroacular Muscles: Positive for: EOMI Conjunctiva: Positive for: Normal Mouth: Positive for: Moist Mucous Membranes Neck: Positive for: Normal Range of Motion Respiratory/Chest: Positive for: Clear to Auscultation, Good Air Exchange. Negative for: Respiratory Distress, Accessory Muscle Use Cardiovascular: Positive for: Regular Rate and Rhythm, Normal S1, S2 Abdomen: Positive for: Normal Bowel Sounds. Negative for: Tenderness, Distention, Peritoneal Signs, Rebound, Guarding Upper Extremity: Positive for: Normal Inspection, Normal ROM, NORMAL PULSES. Negative for: Cyanosis, Edema Lower Extremity: Positive for: Normal Inspection, NORMAL PULSES, Other (dressing of femoral joint on both groin areas). Negative for: Edema, CALF TENDERNESS Neurological: Positive for: CN II-XII Intact Skin: Positive for: Warm, Dry, Normal Color Psychiatric: Positive for: Alert, Oriented x 3 - Medications Active Medications: Active Medications Generic Name Dose Route Start Last Admin Trade Name Freq PRN Reason Stop Dose Admin Acetaminophen 650 mg 02/13/19 16:27 02/14/19 08:08 Tylenol 325mg Tab PO 650 mg Q6 PRN Administration Headache Aspirin 81 mg 02/13/19 10:00 02/14/19 09:36 Aspirin Chewable PO 81 mg DAILY [facility] Administration Enalapril Maleate 5 mg 02/13/19 10:00 02/14/19 09:36 Vasotec PO 5 mg DAILY [facility] Administration Famotidine 20 mg 02/13/19 10:00 02/14/19 09:35 Pepcid PO 20 mg BID [facility] Administration Nitroglycerin/Dextrose 50 mg in 250 mls @ 1.5 mls/hr 02/13/19 08:00 02/14/19 09:40 Nitroglycerin 50 Mg/250 Ml D5w IV 5 mcg/min .Q24H [facility] 1.5 mls/hr Titration Protocol 5 MCG/MIN Metoprolol Tartrate 25 mg 02/13/19 10:00 02/14/19 10:39 Lopressor PO 25 mg BID [facility] Administration Montelukast Sodium 10 mg 02/13/19 22:00 02/13/19 22:06 Singulair PO 10 mg HS [facility] Administration Morphine Sulfate 2 mg 02/13/19 09:24 02/14/19 01:50 Morphine IVP 2 mg Q4 PRN Administration Pain, severe (8-10) Rosuvastatin Calcium 5 mg 02/13/19 22:00 02/13/19 22:06 Crestor PO 5 mg HS [facility] Administration Ticagrelor 90 mg 02/13/19 10:00 02/14/19 09:37 Brilinta PO 90 mg BID [facility] Administration - Patient Studies Lab Studies: Lab Studies 02/14/19 02/14/19 02/13/19 Range/Units 05:36 05:36 18:41 WBC 16.1 H (4.8-10.8) K/uL RBC 4.74 (4.40-5.90) Mil/uL Hgb 13.4 (12.0-18.0) g/dL Hct 40.5 (35.0-51.0) % MCV 85.6 (80.0-94.0) fL MCH 28.3 (27.0-31.0) pg MCHC 33.0 (33.0-37.0) g/dL RDW 13.2 (11.5-14.5) % Plt Count 304 (130-400) K/uL MPV 7.5 (7.2-11.7) fL Neut % (Auto) 74.8 (50.0-75.0) % Lymph % (Auto) 15.2 L (20.0-40.0) % [place] % (Auto) 9.1 (0.0-10.0) % Eos % (Auto) 0.4 (0.0-4.0) % Baso % (Auto) 0.5 (0.0-2.0) % Neut # (Auto) 12.0 H (1.8-7.0) K/uL Lymph # (Auto) 2.4 (1.0-4.3) K/uL [place] # (Auto) 1.5 H (0.0-0.8) K/uL Eos # (Auto) 0.1 (0.0-0.7) K/uL Baso # (Auto) 0.1 (0.0-0.2) K/uL Sodium 138 139 (132-148) mmol/L Potassium 4.4 3.8 (3.6-5.2) mmol/L Chloride 103 101 (98-107) mmol/L Carbon Dioxide 25 26 (22-30) mmol/L Anion Gap 15 16 (10-20) BUN 11 11 (9-20) mg/dL Creatinine 0.8 0.8 (0.8-1.5) mg/dL Est GFR ( Amer) > 60 > 60 Est GFR (Non-Af Amer) > 60 > 60 Random Glucose 123 H 144 H (75-110) mg/dL Calcium 8.7 9.3 (8.6-10.4) mg/dl Phosphorus 3.0 (2.5-4.5) mg/dL Magnesium 1.9 (1.6-2.3) mg/dL Total Bilirubin 1.8 H 1.3 (0.2-1.3) mg/dL AST 175 H 191 H D (17-59) U/L ALT 52 53 (21-72) U/L Alkaline Phosphatase 62 69 (38-126) U/L Total Creatine Kinase 1258 H 1487 H (55-170) U/L CK-MB (Mass) 66.2 H 124 H (0.0-3.38) ng/mL Troponin I 19.8000 H* 30.5000 H* (0.00-0.120) ng/mL Total Protein 6.9 7.3 (6.3-8.3) g/dL Albumin 4.1 4.2 (3.5-5.0) g/dL Globulin 2.8 3.1 (2.2-3.9) gm/dL Albumin/Globulin Ratio 1.5 1.3 (1.0-2.1) 02/13/19 02/13/19 Range/Units 18:41 10:39 WBC 17.1 H D (4.8-10.8) K/uL RBC 4.72 (4.40-5.90) Mil/uL Hgb 13.6 (12.0-18.0) g/dL Hct 40.0 (35.0-51.0) % MCV 84.8 (80.0-94.0) fL MCH 28.8 (27.0-31.0) pg MCHC 34.0 (33.0-37.0) g/dL RDW 12.8 (11.5-14.5) % Plt Count 321 (130-400) K/uL MPV 7.6 (7.2-11.7) fL Neut % (Auto) 79.3 H (50.0-75.0) % Lymph % (Auto) 11.7 L (20.0-40.0) % [place] % (Auto) 8.2 (0.0-10.0) % Eos % (Auto) 0.2 (0.0-4.0) % Baso % (Auto) 0.6 (0.0-2.0) % Neut # (Auto) 13.5 H (1.8-7.0) K/uL Lymph # (Auto) 2.0 (1.0-4.3) K/uL [place] # (Auto) 1.4 H (0.0-0.8) K/uL Eos # (Auto) 0.0 (0.0-0.7) K/uL Baso # (Auto) 0.1 (0.0-0.2) K/uL Sodium (132-148) mmol/L Potassium (3.6-5.2) mmol/L Chloride (98-107) mmol/L Carbon Dioxide (22-30) mmol/L Anion Gap (10-20) BUN (9-20) mg/dL Creatinine (0.8-1.5) mg/dL Est GFR ( Amer) Est GFR (Non-Af Amer) Random Glucose (75-110) mg/dL Calcium (8.6-10.4) mg/dl Phosphorus (2.5-4.5) mg/dL Magnesium (1.6-2.3) mg/dL Total Bilirubin (0.2-1.3) mg/dL AST (17-59) U/L ALT (21-72) U/L Alkaline Phosphatase (38-126) U/L Total Creatine Kinase 1068 H (55-170) U/L CK-MB (Mass) 75.2 H (0.0-3.38) ng/mL Troponin I 17.7000 H* (0.00-0.120) ng/mL Total Protein (6.3-8.3) g/dL Albumin (3.5-5.0) g/dL Globulin (2.2-3.9) gm/dL Albumin/Globulin Ratio (1.0-2.1) Laboratory Results - last 24 hr 02/13/19 02/13/19 02/13/19 10:39 18:41 18:41 WBC 17.1 H D RBC 4.72 Hgb 13.6 Hct 40.0 MCV 84.8 MCH 28.8 MCHC 34.0 RDW 12.8 Plt Count 321 MPV 7.6 Neut % (Auto) 79.3 H Lymph % (Auto) 11.7 L [place] % (Auto) 8.2 Eos % (Auto) 0.2 Baso % (Auto) 0.6 Neut # (Auto) 13.5 H Lymph # (Auto) 2.0 [place]ies # (Auto) 1.4 H Eos # (Auto) 0.0 Baso # (Auto) 0.1 Sodium 139 Potassium 3.8 Chloride 101 Carbon Dioxide 26 Anion Gap 16 BUN 11 Creatinine 0.8 Est GFR ( Amer) > 60 Est GFR (Non-Af Amer) > 60 Random Glucose 144 H Calcium 9.3 Phosphorus Magnesium Total Bilirubin 1.3 AST 191 H D ALT 53 Alkaline Phosphatase 69 Total Creatine Kinase 1068 H 1487 H CK-MB (Mass) 75.2 H 124 H Troponin I 17.7000 H* 30.5000 H* Total Protein 7.3 Albumin 4.2 Globulin 3.1 Albumin/Globulin Ratio 1.3 02/14/19 02/14/19 05:36 05:36 WBC 16.1 H RBC 4.74 Hgb 13.4 Hct 40.5 MCV 85.6 MCH 28.3 MCHC 33.0 RDW 13.2 Plt Count 304 MPV 7.5 Neut % (Auto) 74.8 Lymph % (Auto) 15.2 L Maries % (Auto) 9.1 Eos % (Auto) 0.4 Baso % (Auto) 0.5 Neut # (Auto) 12.0 H Lymph # (Auto) 2.4 Maries # (Auto) 1.5 H Eos # (Auto) 0.1 Baso # (Auto) 0.1 Sodium 138 Potassium 4.4 Chloride 103 Carbon Dioxide 25 Anion Gap 15 BUN 11 Creatinine 0.8 Est GFR ( Amer) > 60 Est GFR (Non-Af Amer) > 60 Random Glucose 123 H Calcium 8.7 Phosphorus 3.0 Magnesium 1.9 Total Bilirubin 1.8 H AST 175 H ALT 52 Alkaline Phosphatase 62 Total Creatine Kinase 1258 H CK-MB (Mass) 66.2 H Troponin I 19.8000 H* Total Protein 6.9 Albumin 4.1 Globulin 2.8 Albumin/Globulin Ratio 1.5 Radiology Impressions: Radiology Impressions Chest X-Ray 02/13/19 04:00 IMPRESSION: Poor inspiration with low lung volumes common crowded bronchovascular markings and mild bibasilar atelectasis EKG/Cardiology Studies: Cardiology / EKG Studies 02/13/19 13:38 EKG [ELECTROCARDIOGRAM] Stat Comment: Mode Of Transportation: Reason For Exam: chest pain 02/14/19 01:28 EKG [ELECTROCARDIOGRAM] Stat Comment: Mode Of Transportation: Reason For Exam: chest pain Review of Systems - Review of Systems All systems: reviewed and no additional remarkable complaints except Review of Systems: as per [facility] Critical Care Progress Note - Nutrition Nutrition: Nutrition Category Date Time Status Heart Healthy Diet [DIET] Diets 02/13/19 Lunch Active
--- NOTE | 2019-02-14 16:31 | CP.PCM.CON ---
History of Present Illness - History of Present Illness History of Present Illness: 48-year-old male presents to the emergency department with complaints of chest pain that started an hour prior to arrival. Patient qualifies the pain as a pressure towards the left side of his chest radiating into his left arm, associa jackson with mild shortness of breath. Patient noted recent intermittent occurrences of these symptoms over the past couple of days. EMS arrived on scene and noted ST elevation in V1 -V3 as well as depressions in 2, 3. Patient was given 325 MG aspirin as well as nitro x 3 with resolution of the pain. Patient noted the pain was initially 7 out of 10. Patient denies trauma, fall, recent surgery, and swe lling. Code angio was called in and patient had PCI of LAD. He had acute thrombis in an hour and another PCI was performed with successful resolution of EKG changes and symptoms. Review of Systems - Constitutional Constitutional: As Per HPI - EENT Eyes: As Per HPI - Cardiovascular Cardiovascular: As Per HPI - Respiratory Respiratory: As Per HPI - Gastrointestinal Gastrointestinal: As Per HPI - Neurological Neurological: As Per HPI Past Patient History - Past Medical History & Family History Past Medical History?: Yes - Past Social History Smoking Status: Never Smoked - CARDIAC Hx Hypercholesterolemia: Yes Hx Hypertension: Yes - MUSCULOSKELETAL/RHEUMATOLOGICAL Hx Falls: No - PSYCHIATRIC Hx Substance Use: No Meds Allergies/Adverse Reactions: Allergies Allergy/AdvReac Type Severity Reaction Status Date / Time No Known Allergies Allergy Verified 02/13/19 03:56 - Medications Medications: Current Medications Acetaminophen (Tylenol 325mg Tab) 650 mg PO Q6 PRN PRN Reason: Headache Last Admin: 02/14/19 08:08 Dose: 650 mg Aspirin (Aspirin Chewable) 81 mg PO DAILY [facility] Last Admin: 02/14/19 09:36 Dose: 81 mg Enalapril Maleate (Vasotec) 5 mg PO DAILY [facility] Last Admin: 02/14/19 09:36 Dose: 5 mg Famotidine (Pepcid) 20 mg PO BID [facility] Last Admin: 02/14/19 09:35 Dose: 20 mg Nitroglycerin/Dextrose (Nitroglycerin 50 Mg/250 Ml D5w) 50 mg in 250 mls @ 1.5 mls/hr IV .Q24H [facility]; Protocol Last Titration: 02/14/19 09:40 Dose: 5 mcg/min, 1.5 mls/hr Metoprolol Tartrate (Lopressor) 25 mg PO BID [facility] Last Admin: 02/14/19 10:39 Dose: 25 mg Montelukast Sodium (Singulair) 10 mg PO [facility] Last Admin: 02/13/19 22:06 Dose: 10 mg Morphine Sulfate (Morphine) 2 mg IVP Q4 PRN PRN Reason: Pain, severe (8-10) Last Admin: 02/14/19 01:50 Dose: 2 mg Rosuvastatin Calcium (Crestor) 5 mg PO [facility] Last Admin: 02/13/19 22:06 Dose: 5 mg Ticagrelor (Brilinta) 90 mg PO BID [facility] Last Admin: 02/14/19 09:37 Dose: 90 mg Physical Exam - Head Exam Head Exam: NORMOCEPHALIC - Neck Exam Neck exam: Positive for: Normal Inspection - Respiratory Exam Respiratory Exam: NORMAL BREATHING PATTERN - Cardiovascular Exam Cardiovascular Exam: REGULAR RHYTHM - Extremities Exam Extremities exam: Positive for: normal inspection - Neurological Exam Neurological exam: Alert, Oriented x3 Results - Vital Signs Recent Vital Signs: Last Vital Signs Temp 98.2 F 02/14/19 12:00 Pulse 84 02/14/19 15:57 Resp 24 02/14/19 15:57 BP 106/66 02/14/19 15:57 Pulse Ox 97 02/14/19 15:57 - Labs Result Diagrams: 02/14/19 05:36 02/14/19 05:36 Labs: Laboratory Results - last 24 hr 02/13/19 02/13/19 02/14/19 18:41 18:41 05:36 WBC 17.1 H D 16.1 H RBC 4.72 4.74 Hgb 13.6 13.4 Hct 40.0 40.5 MCV 84.8 85.6 MCH 28.8 28.3 MCHC 34.0 33.0 RDW 12.8 13.2 Plt Count 321 304 MPV 7.6 7.5 Neut % (Auto) 79.3 H 74.8 Lymph % (Auto) 11.7 L 15.2 L Holmes % (Auto) 8.2 9.1 Eos % (Auto) 0.2 0.4 Baso % (Auto) 0.6 0.5 Neut # (Auto) 13.5 H 12.0 H Lymph # (Auto) 2.0 2.4 Holmes # (Auto) 1.4 H 1.5 H Eos # (Auto) 0.0 0.1 Baso # (Auto) 0.1 0.1 Sodium 139 Potassium 3.8 Chloride 101 Carbon Dioxide 26 Anion Gap 16 BUN 11 Creatinine 0.8 Est GFR ( Amer) > 60 Est GFR (Non-Af Amer) > 60 Random Glucose 144 H Calcium 9.3 Phosphorus Magnesium Total Bilirubin 1.3 AST 191 H D ALT 53 Alkaline Phosphatase 69 Total Creatine Kinase 1487 H CK-MB (Mass) 124 H Troponin I 30.5000 H* Total Protein 7.3 Albumin 4.2 Globulin 3.1 Albumin/Globulin Ratio 1.3 02/14/19 05:36 WBC RBC Hgb Hct MCV MCH MCHC RDW Plt Count MPV Neut % (Auto) Lymph % (Auto) Holmes % (Auto) Eos % (Auto) Baso % (Auto) Neut # (Auto) Lymph # (Auto) Holmes # (Auto) Eos # (Auto) Baso # (Auto) Sodium 138 Potassium 4.4 Chloride 103 Carbon Dioxide 25 Anion Gap 15 BUN 11 Creatinine 0.8 Est GFR ( Amer) > 60 Est GFR (Non-Af Amer) > 60 Random Glucose 123 H Calcium 8.7 Phosphorus 3.0 Magnesium 1.9 Total Bilirubin 1.8 H AST 175 H ALT 52 Alkaline Phosphatase 62 Total Creatine Kinase 1258 H CK-MB (Mass) 66.2 H Troponin I 19.8000 H* Total Protein 6.9 Albumin 4.1 Globulin 2.8 Albumin/Globulin Ratio 1.5 Assessment & Plan (1) Hypertension Status: Acute (2) Lipid disorder Assessment and Plan: Control BP and maintain LDL<80. Continue lipid lowering diet. Status: Acute (3) ST elevation (STEMI) myocardial infarction involving left anterior descending coronary artery Assessment and Plan: Successful PTCA and stent of LAD. Continue DAPT and compliance. He has multi- vessel disease and wants to go to another hospital. Discussed with patint and his daughter and he will follow with his primary and his guide visitor. Status: Acute
--- NOTE | 2019-02-14 16:56 | CARD ---
APPROVED REPORT Date of service: 02/14/2019 EXAM: Two-dimensional and M-mode echocardiogram with Doppler and color Doppler. Other Information Technically limited study due to body habitus. INDICATION Chest Pain Status/Post CA RISK FACTORS Hypertension 2D DIMENSIONS IVSd1.2 (0.7-1.1cm)LVDd4.5 (3.9-5.9cm) PWd1.0 (0.7-1.1cm)LA Lsahfd55 (18-58mL) LVDs2.9 (2.5-4.0cm)FS (%) 36.2 % LVEF (%)35.0 (>50%)LVEF (Beth's)40 % M-Mode DIMENSIONS Left Atrium (MM)3.34 (2.5-4.0cm)IVSd1.11 (0.7-1.1cm) Aortic Root3.51 (2.2-3.7cm)LVDd4.50 (4.0-5.6cm) Aortic Cusp Exc.2.30 (1.5-2.0cm)PWd1.02 (0.7-1.1cm) FS (%) 30 %LVDs3.16 (2.0-3.8cm) LVEF (%)38 (>50%) Mitral Valve MV E Hyrrmnhb65.2cm/sMV A Cgpeucph78.5cm/sE/A ratio0.9 TDI Lateral E' Peak V9.19cm/sMedial E' Peak V7.58cm/sE/Lateral E'6.1 E/Medial E'7.4 LEFT VENTRICLE The left ventricle is normal size. There is mild to moderate concentric left ventricular hypertrophy. The systolic function is mildly impaired. Regional wall motion abnormalities noted. Transmitral Doppler flow pattern is abnormal. RIGHT VENTRICLE The right ventricle is normal size. ATRIA The left atrium size is normal. The right atrium size is normal. AORTIC VALVE The aortic valve is normal in structure. MITRAL VALVE Mitral regurgitation is trace. <Conclusion> Technically difficult study. Mild LV systolic dysfunction. Normal chamber size. Anterio and apical hypokinesis. LVH with diastolic dysfunction.
--- NOTE | 2019-02-14 17:29 | CP.PCM.PN ---
Subjective - Date & Time of Evaluation Date of Evaluation: 02/14/19 Time of Evaluation: 14:45 - Subjective Subjective: Hospitalist Progress Note Patient was seen and examined at 2:45 PM 02/14/19 ICU Bed #11 48 year old male who is S/P Cardiac Catheterization x 2 with placement of total of 2 HENRY in the LAD. Currently upon FULL ROS: NO chest pain NO SOB/Cough/Wheezing NO dysphagia/odynophaiga NO abdominal pain NO n/v/d/c NO burning/pain with urination NO lightheadedness/dizzines Head earlier when the Nitroglycerin drip was running (knows to ask for Tylenol if needed) NO new changes in vision NO new changes in hearing NO paresthesias General: AAOx3, NAD HEENT: NCA, EOMI, PERRLA, NO pharyngeal erythema/exudate, NO thyromegaly, NO lymphadenopathy Cardio: NS1, and NS2, NO M/R/G Resp: CTA B/L, NO R/R/W GI: BSx4, Soft, NT, ND, NO HSM, NO guarding/rebound tenderness Ext: Pulses are strong and equal, Capillary Refill is 2 seconds, NO edema, Bilateral Groin Cardiac Catheterization entry sites without any bruising and without any tenderness to palpation, NO hardness palpated in these areas Neuro: CN II through XII are grossly intact Assessment and Plan: Unstable Angina ST Elevation Status: Acute Risk factors: Family of hx of heart problems (mother),former smoker, hypertension, lipid disorder, daily aspirin Cardiology early childhood education worker (Dr. Newton) on consult Code heart 02/13/19 in ambulance, received 3 NTG and asa 325 per ED triage note, in ED, Heparin bolus, brilinta loading dose, nitro per code heart protocol Admitted to ICU Required 2 caths post cath one: worsening ST Elevation prompting second cathetherization LAD with HENRY (2) Pending official catheterization reports Check cardiac risk factors: hgba1c, tsh, lipid disorder,UDS Post cath 2: Patient is on integrilin drip, nitro drip, heparin drip Aspirin 81mg PO daily Vasotec 5mg PO daily Morphine 2mg IVP Q4h PRN severe pain Crestor 5mg POqHS Brilinta 90mg PO bid Echo ordered: follow up official report Hypertension Status: Chronic Lopressor 25mg PO BID Vasotec 5mg PO daily Hyperglycemia Status: Chronic Hgba1c Hyplipidemia Status: Chronic Statin therapy (CAD): Crestor as above Former Smoker Status: Chronic Smoked from age [age]: patient reports he no longer smokes patient understands the risk associated with smoking including cancer risk, premature aging, heart disease and ultimately Family hx of heart Problems Status: Chronic Mother recovering from valve surgery about one month ago History of Allergies Status: Chronic Montelukast 10mg Po daily Patient reports he does not use a nebulizer Prophylactic measure Status: Acute Post cath #2 on integrilin drip and nitro drip, heparin drip Pepcid 20mg PO BID (not protonix given has stents placed) Disposition: F/U further recommendations from Teletype Telegrapher Dr. Newton: possible discharge 02/15/19? F/U Echocardiogram report Spoke with patient's sister Keira at the request of the patient and updated her via phone Rocael Fernandez D.O. Objective - Vital Signs/Intake and Output Vital Signs (last 24 hours): Temp Pulse Resp BP Pulse Ox 98.2 F 98 H 24 103/73 95 02/14/19 12:00 02/14/19 17:00 02/14/19 17:00 02/14/19 16:57 02/14/19 17:00 Intake and Output: 02/14/19 02/14/19 06:59 18:59 Intake Total 894.3 514.4 Output Total 900 1541 Balance -5.7 -1026.6 - Medications Medications: Current Medications Acetaminophen (Tylenol 325mg Tab) 650 mg PO Q6 PRN PRN Reason: Headache Last Admin: 02/14/19 08:08 Dose: 650 mg Aspirin (Aspirin Chewable) 81 mg PO DAILY [facility] Last Admin: 02/14/19 09:36 Dose: 81 mg Enalapril Maleate (Vasotec) 5 mg PO DAILY [facility] Last Admin: 02/14/19 09:36 Dose: 5 mg Famotidine (Pepcid) 20 mg PO BID [facility] Last Admin: 02/14/19 09:35 Dose: 20 mg Nitroglycerin/Dextrose (Nitroglycerin 50 Mg/250 Ml D5w) 50 mg in 250 mls @ 1.5 mls/hr IV .Q24H [facility]; Protocol Last Titration: 02/14/19 09:40 Dose: 5 mcg/min, 1.5 mls/hr Metoprolol Tartrate (Lopressor) 25 mg PO BID [facility] Last Admin: 02/14/19 10:39 Dose: 25 mg Montelukast Sodium (Singulair) 10 mg PO HS [facility] Last Admin: 02/13/19 22:06 Dose: 10 mg Morphine Sulfate (Morphine) 2 mg IVP Q4 PRN PRN Reason: Pain, severe (8-10) Last Admin: 02/14/19 01:50 Dose: 2 mg Rosuvastatin Calcium (Crestor) 5 mg PO HS [facility] Last Admin: 02/13/19 22:06 Dose: 5 mg Ticagrelor (Brilinta) 90 mg PO BID [facility] Last Admin: 02/14/19 09:37 Dose: 90 mg - Labs Labs: 02/14/19 05:36 02/14/19 05:36 PT 13.0 SECONDS (9.7-12.2) H 02/13/19 04:23 INR 1.2 02/13/19 04:23 APTT 31.6 SECONDS (21-34) 02/13/19 04:23
--- NOTE | 2019-02-14 17:51 | CARD ---
APPROVED REPORT Date of service: 02/13/2019 EKG Measurement Heart [id number] <Conclusion> Normal sinus rhythm Anteroseptal infarct, possibly acute ACUTE CT / STEMI Abnormal ECG
--- NOTE | 2019-02-14 17:52 | CARD ---
APPROVED REPORT Date of service: 02/13/2019 EKG Measurement Heart [id number] <Conclusion> Poor data quality, interpretation may be adversely affected Sinus tachycardia ST elevation, consider anterolateral injury or acute infarct ACUTE [place] / STEMI Abnormal ECG
--- NOTE | 2019-02-14 17:54 | CARD ---
APPROVED REPORT Date of service: 02/13/2019 EKG Measurement Heart [id number] <Conclusion> Sinus tachycardia Nonspecific ST and T wave abnormality Abnormal ECG
[2019-02-14] MEDS ORDERED: Propofol 10 mg/ml 1,000 MG/100 ML VIAL IV PRN (21:06)
[2019-02-15 06:04] LABS: BASO # 0.1 K/uL (0.0-0.2); BASO % 0.5 % (0.0-2.0); EOS # 0.2 K/uL (0.0-0.7); EOS % 1.1 % (0.0-4.0); HEMOGLOBIN 13.5 g/dL (12.0-18.0); LYMPH # 3.6 K/uL (1.0-4.3); LYMPH % 25.3 % (20.0-40.0); MEAN CELL VOLUME 85.6 fL (80.0-94.0); MEAN CORPUSCULAR HEMOGLOBIN 28.8 pg (27.0-31.0); MEAN CORPUSCULAR HGB CONC 33.7 g/dL (33.0-37.0); MEAN PLATELET VOLUME 7.7 fL (7.2-11.7); MONO # 1.4 K/uL (0.0-0.8); MONO % 9.7 % (0.0-10.0); NEUT % 63.4 % (50.0-75.0); RBC 4.69 Mil/uL (4.40-5.90); RED CELL DISTRIBUTION WIDTH 13.4 % (11.5-14.5); WHITE BLOOD COUNT 14.1 K/uL (4.8-10.8)
[2019-02-15 06:28] LABS: ALB/GLOB RATIO 1.3 (1.0-2.1); ALBUMIN 4.2 g/dL (3.5-5.0); ALT/SGPT 44 U/L (21-72); AST/SGOT 95 U/L (17-59); BLOOD UREA NITROGEN 13 mg/dL (9-20); GFR NON-AFRICAN AMERICAN > 60
[2019-02-15 08:37] VITALS: TEMP 99
[2019-02-15 10:37] VITALS: BP 122/80; PULSE 90; RESP 20; O2SAT 97
--- NOTE | 2019-02-15 14:46 | CP.PCM.DIS ---
Provider - Provider Date of Admission: 02/13/19 04:09 Attending physician: Corinne Lopez DO Primary care physician: Dr. Warren Consults: 02/13/19 09:14 Cardiology Consult Routine Comment: Consulting Provider: Richie Newton Consulting Physician: Richie Newton Reason for Consult: code heart 02/13/19 Time Spent in preparation of Discharge (in minutes): 40 Hospital Course - Lab Results Lab Results: Micro Results 02/13/19 10:39 Naris MRSA Culture (Admit) - Final MRSA NOT DETECTED Most Recent Lab Values WBC 14.1 K/uL (4.8-10.8) H 02/15/19 05:58 RBC 4.69 Mil/uL (4.40-5.90) 02/15/19 05:58 Hgb 13.5 g/dL (12.0-18.0) 02/15/19 05:58 Hct 40.2 % (35.0-51.0) 02/15/19 05:58 MCV 85.6 fL (80.0-94.0) 02/15/19 05:58 MCH 28.8 pg (27.0-31.0) 02/15/19 05:58 MCHC 33.7 g/dL (33.0-37.0) 02/15/19 05:58 RDW 13.4 % (11.5-14.5) 02/15/19 05:58 Plt Count 282 K/uL (130-400) 02/15/19 05:58 MPV 7.7 fL (7.2-11.7) 02/15/19 05:58 Neut % (Auto) 63.4 % (50.0-75.0) 02/15/19 05:58 Lymph % (Auto) 25.3 % (20.0-40.0) 02/15/19 05:58 Marshall % (Auto) 9.7 % (0.0-10.0) 02/15/19 05:58 Eos % (Auto) 1.1 % (0.0-4.0) 02/15/19 05:58 Baso % (Auto) 0.5 % (0.0-2.0) 02/15/19 05:58 Neut # (Auto) 9.0 K/uL (1.8-7.0) H 02/15/19 05:58 Lymph # (Auto) 3.6 K/uL (1.0-4.3) 02/15/19 05:58 Marshall # (Auto) 1.4 K/uL (0.0-0.8) H 02/15/19 05:58 Eos # (Auto) 0.2 K/uL (0.0-0.7) 02/15/19 05:58 Baso # (Auto) 0.1 K/uL (0.0-0.2) 02/15/19 05:58 PT 13.0 SECONDS (9.7-12.2) H 02/13/19 04:23 INR 1.2 02/13/19 04:23 APTT 31.6 SECONDS (21-34) 02/13/19 04:23 Sodium 138 mmol/L (132-148) 02/15/19 05:58 Potassium 4.0 mmol/L (3.6-5.2) 02/15/19 05:58 Chloride 105 mmol/L (98-107) 02/15/19 05:58 Carbon Dioxide 25 mmol/L (22-30) 02/15/19 05:58 Anion Gap 12 (10-20) 02/15/19 05:58 BUN 13 mg/dL (9-20) 02/15/19 05:58 Creatinine 0.9 mg/dL (0.8-1.5) 02/15/19 05:58 Est GFR ( Amer) > 60 02/15/19 05:58 Est GFR (Non-Af Amer) > 60 02/15/19 05:58 Random Glucose 100 mg/dL (75-110) 02/15/19 05:58 Hemoglobin A1c 5.8 % (4.2-6.5) 02/13/19 09:26 Calcium 9.0 mg/dl (8.6-10.4) 02/15/19 05:58 Phosphorus 3.2 mg/dL (2.5-4.5) 02/15/19 05:58 Magnesium 2.0 mg/dL (1.6-2.3) 02/15/19 05:58 Total Bilirubin 1.4 mg/dL (0.2-1.3) H 02/15/19 05:58 AST 95 U/L (17-59) H D 02/15/19 05:58 ALT 44 U/L (21-72) 02/15/19 05:58 Alkaline Phosphatase 67 U/L (38-126) 02/15/19 05:58 Total Creatine Kinase 1258 U/L (55-170) H 02/14/19 05:36 CK-MB (Mass) 66.2 ng/mL (0.0-3.38) H 02/14/19 05:36 Troponin I 19.8000 ng/mL (0.00-0.120) H* 02/14/19 05:36 Total Protein 7.3 g/dL (6.3-8.3) 02/15/19 05:58 Albumin 4.2 g/dL (3.5-5.0) 02/15/19 05:58 Globulin 3.1 gm/dL (2.2-3.9) 02/15/19 05:58 Albumin/Globulin Ratio 1.3 (1.0-2.1) 02/15/19 05:58 Triglycerides 156 mg/dL (0-149) H 02/13/19 09:26 Cholesterol 170 mg/dL (0-199) 02/13/19 09:26 LDL Cholesterol Direct 116 mg/dL (0-129) 02/13/19 09:26 HDL Cholesterol 35 mg/dL (30-70) 02/13/19 09:26 Free T4 1.08 ng/dL (0.78-2.19) 02/13/19 09:26 TSH 3rd Generation 0.90 mIU/L (0.46-4.68) 02/13/19 09:26 Urine Opiates Screen Positive (NEGATIVE) H 02/13/19 09:26 Urine Methadone Screen Negative (NEGATIVE) 02/13/19 09:26 Ur Barbiturates Screen Negative (NEGATIVE) 02/13/19 09:26 Ur Phencyclidine Scrn Negative (NEGATIVE) 02/13/19 09:26 Ur Amphetamines Screen Negative (NEGATIVE) 02/13/19 09:26 U Benzodiazepines Scrn Negative (NEGATIVE) 02/13/19 09:26 U Oth Cocaine Metabols Negative (NEGATIVE) 02/13/19 09:26 U Cannabinoids Screen Negative (NEGATIVE) 02/13/19 09:26 Blood Type O POSITIVE 02/13/19 04:34 Antibody Screen Negative 02/13/19 04:34 - Hospital Course Hospital Course: Hospitalis Discharge Summary Patient was seen and examined at 10:00 AM 02/15/19 ICU Bed 11 with his present. Nurse Sharyn helped to translate Salvadorean as the [employer] interpreting system could not be located at the time of my exam. 48-year-old male who presented to the [facility] ER on 01/14/19 with a chief complaint of chest pain that had started 1 hour prior to his presentation. The chest pain was best described as a pressure sensation and located on the left side of the chest with radiation down to his left arm. This was associated with shortness of breath. This was occurring on and off for a few days prior to his presentation. EMS EKG noted that ST elevations were present on V1 through V3 and ST depression in Leads II and III. Patient had elevated troponins. A Code Heart was instituted x 2. Patient received 2 HENRY in the LAD. Please see Assessment and Plans below for further details and a the medical record for full details. Currently upon FULL ROS: NO chest pain NO SOB/Cough/Wheezing NO dysphagia/odynophaiga NO abdominal pain NO n/v/d/c: has not had a bowel movement yet today but had one yesterday and it was normal NO burning/pain with urination NO lightheadedness/dizzines Head ache has resolved ever since the discontinuation of the Nitroglycerin Drip on 02/14/19 NO new changes in vision NO new changes in hearing NO paresthesias General: AAOx3, NAD HEENT: NCA, EOMI, PERRLA, NO pharyngeal erythema/exudate, NO thyromegaly, NO lymphadenopathy Cardio: NS1, and NS2, NO M/R/G Resp: CTA B/L, NO R/R/W GI: BSx4, Soft, NT, ND, NO HSM, NO guarding/rebound tenderness Ext: Pulses are strong and equal, Capillary Refill is 2 seconds, NO edema, Bilateral Groin Cardiac Catheterization entry sites without any bruising and without any tenderness to palpation, NO hardness palpated in these areas Neuro: CN II through XII are grossly intact Assessment and Plan: 1). Unstable Angina ST Elevation Status: Acute Risk factors: Family of hx of heart problems (mother),former smoker, hypertension, lipid disorder, daily aspirin Cardiology contract sheltered workshop supervisor (Dr. Newton) on consult Code heart 02/13/19: in ambulance, received 3 NTG and asa 325 per ED triage note, in ED, Heparin bolus, brilinta loading dose, nitro per code heart protocol Admitted to ICU Required 2 Cardiac Catheterizations Post Cardiac Catheterization #1: worsening ST Elevation prompting second cathetherization LAD with HENRY (2) Please see details in Cardiac Catheterization reports Check cardiac risk factors: hgba1c, tsh, lipid disorder,UDS Post Cardiac Catheterization #2: Patient was on integrilin drip, nitro drip, heparin drip Aspirin 81mg PO daily Vasotec 5mg PO daily Morphine 2mg IVP Q4h PRN severe pain Crestor 5mg POqHS Brilinta 90mg PO bid EchoCardiogram: mild LV Systolic Dysfunction, normal chamber size, anterior and apical hypokinesis, LVH with diastolic dysfunction 2). Hypertension Status: Chronic Lopressor 25mg PO BID Vasotec 5mg PO daily 3). Hyperglycemia Status: Chronic Hgba1c 5.8 4). Hyplipidemia Status: Chronic Statin therapy (CAD): Crestor as above LDL 116, HDL 35, Triglycerides 156, Total Cholesterol 170 5). History Former Smoker Status: Chronic Smoked from age [age]: patient reports he no longer smokes Patient understands the risk associated with smoking including cancer risk, premature aging, heart disease and ultimately 6). Family Hx of Heart Issues (Maternal) Status: Chronic Mother recovering from valve surgery about one month ago 7). History of Allergies Status: Chronic Montelukast 10mg Po daily Patient reports he does not use a nebulizer 8). Prophylactic measure Status: Acute Post cath #2 on integrilin drip and nitro drip, heparin drip Pepcid 20mg PO BID (not protonix given has stents placed) Spoke with Engineer Assistant Dr. Newton prior to my exam this morning and he has cleared patient for discharge. Attempted to call patient's physician myself Dr. Warren however patient has wrong phone number in his phone. Provided patient with all of his labs, EKGs, Cardiac Catheterization reports, Echocardiogram report as patient is from [facility] and stated that he would prefer to follow up with his physician Dr. Warren there. Thoroughly stressed that importance of follow up with Dr. Warren so that referral could be provided by him for Engineer Assistant in [place] and also stressed compliance with medications. Patient's was also present at the bedside for entirety of conversation and this was ok with the patient. Went over all discharge instructions with patient with the help of Nurse Gibbons who translated Salvadorean. The following instructions were explained to patient in jordanian by Nurse Gibbons and a copy will be provided to him in Salvadorean. 1). Please make sure to follow up with primary care physician Dr. Campos in the next 7 days. 2). Through Dr. Campos's office obtain referral for a Engineer Assistant. Follow up with this Engineer Assistant should take place in 14 days from the time of your discharge from our hospital. 3). Please have the following prescriptions filled at a pharmacy on your way home from the hospital. Only 1 month prescriptions were given to you and refills will have to be obtained through Dr. Campos. Please make sure to use them as instructed. Failure to do so will result in harm to your health: Aspirin 81 mg, 1 tablet by mouth once a day at 8 AM starting 02/16/19 Vasotec 5 mg, 1 tablet by mouth once a day at 2 PM starting 02/15/19 Crestor 5 mg, 1 tablet by mouth once a day at 8 PM starting 02/15/19 Brilinta 90 mg, 1 tablet by mouth two times a day at 8 AM and 8 PM starting at 8 PM on 02/15/19 Metoprolol Tartrate, 1 tablet by mouth two times a day at 8 AM and 8 PM starting at 8 PM on 02/15/19 Singulair 10 mg, 1 tablet by mouth once a day at 8 PM starting at 8 PM on 02/15/19 4). Do NOT perform any heaving lifting or heavy exercise until you cleared to do so by your luster repairer. 5). You were provided with a copy of your Echocardiogram, Cardiac Catheterization reports, EKGs, and Lab reports. Please bring these with you to your appointment with Dr. Campos and to your appointment with the Engineer Assistant that Dr. Campos will send you to. 6). Please take care, be well, be happy, have regular follow ups with Dr. Campos and Engineer Assistant, and take your dancing when you are cleared to do so by your Engineer Assistant. Rocael Fernandez D.O. Las siguientes instrucciones fueron explicadas al paciente en espaol por la enfermera Edwige y se le entregar linda copia en espaol. 1). Por favor, asegrese de hacer un seguimiento con el mdico de atencin primaria Dr. Campos en los prximos 7 banks. 2). A travs de la oficina del Dr. Campos obtenga linda referencia para un cardilogo. El seguimiento con phuc cardilogo debe realizarse dentro de los 14 banks posteriores a friend nii del hospital. 3). Por favor, llene las siguientes recetas en linda farmacia de se a casa desde el hospital. Solo se le dieron recetas de 1 mes y las recargas se obtendrn a travs del Dr. Campos. Por favor, asegrese de usarlos claudio se indica. De lo contrario, se daar friend barbara: Aspirina 81 mg, 1 tableta por va oral linda vez al da a las 8 AM a partir del 15 de nagel de 19 Vasotec 5 mg, 1 comprimido por va oral linda vez al da a las 2 p.m. desde el 14 de nagel de 19 Crestor 5 mg, 1 comprimido por va oral linda vez al da a las 8 p.m. a partir del 14 de nagel de 19 Brilinta 90 mg, 1 tableta por va oral dos veces al da a las 8 AM y 8 PM a partir de las 8 PM el 02/15/19 Taropato de metoprolol, 1 tableta por va oral dos veces al da a las 8 AM y 8 PM a partir de las 8 PM el 02/15/19 Singulair 10 mg, 1 tableta por va oral linda vez al da a las 8 p.m. a partir de las 8 p.m. del 02/15/19 4). NO realice ningn ejercicio de levantamiento o ejercicio pesado hasta que friend cardilogo lo haya autorizado. 5). Se le proporcion linda copia de friend ecocardiograma, informes de cateterizacin cardaca, electrocardiogramas y electrocardiogramas e informes de laboratorio. Por favor llvelo a friend delmy con el Dr. Campos y a friend delmy con el cardilogo a quien el Dr. Campos le enviar. 6). Por favor, cudese, est ronan, sea salcedo, sanju un seguimiento regular con el Dr. Campos y el cardilogo, y lleve a friend esposa a bailar cuando friend cardilogo le permita hacerlo. Discharge Exam - Head Exam Head Exam: NORMOCEPHALIC Discharge Plan - Follow Up Plan Condition: STABLE Disposition: HOME/ ROUTINE Instructions: Hypertension (DC), Hypertension (GEN) Additional Instructions: Las siguientes instrucciones fueron explicadas al paciente en espaol por la enfermera Edwige y se le entregar linda copia en espaol. 1). Por favor, asegrese de hacer un seguimiento con el mdico de atencin primaria Dr. Campos en los prximos 7 banks. 2). A travs de la oficina del Dr. Campos obtenga linda referencia para un cardilogo. El seguimiento con phuc cardilogo debe realizarse dentro de los 14 banks posteriores a friend nii del hospital. 3). Por favor, llene las siguientes recetas en linda farmacia de se a casa desde el hospital. Solo se le dieron recetas de 1 mes y las recargas se obtendrn a travs del Dr. Campos. Por favor, asegrese de usarlos claudio se indica. De lo contrario, se daar friend barbara: Aspirina 81 mg, 1 tableta por va oral linda vez al da a las 8 AM a partir del 15 de nagel de 19 Vasotec 5 mg, 1 comprimido por va oral linda vez al da a las 2 p.m. desde el 14 de nagel de 19 Crestor 5 mg, 1 comprimido por va oral linda vez al da a las 8 p.m. a partir del 14 de nagel de 19 Brilinta 90 mg, 1 tableta por va oral dos veces al da a las 8 AM y 8 PM a partir de las 8 PM el 02/15/19 Taropato de metoprolol, 1 tableta por va oral dos veces al da a las 8 AM y 8 PM a partir de las 8 PM el 02/15/19 Singulair 10 mg, 1 tableta por va oral linda vez al da a las 8 p.m. a partir de las 8 p.m. del 02/15/19 4). NO realice ningn ejercicio de levantamiento o ejercicio pesado hasta que friend cardilogo lo haya autorizado. 5). Se le proporcion linda copia de friend ecocardiograma, informes de cateterizacin cardaca, electrocardiogramas y electrocardiogramas e informes de laboratorio. Por favor llvelo a friend delym con el Dr. Campos y a friend delmy con el cardilogo a quien el Dr. Campos le enviar. 6). Por favor, cudese, est ronan, sea salcedo, sanju un seguimiento regular con el Dr. Campos y el cardilogo, y lleve a friend esposa a bailar cuando friend cardilogo le permita hacerlo. The following instructions were explained to patient in jordanian by Nurse Gibbons and a copy will be provided to him in Salvadorean. 1). Please make sure to follow up with primary care physician Dr. Campos in the next 7 days. 2). Through Dr. Campos's office obtain referral for a Engineer Assistant. Follow up with this Engineer Assistant should take place in 14 days from the time of your discharge from our hospital. 3). Please have the following prescriptions filled at a pharmacy on your way home from the hospital. Only 1 month prescriptions were given to you and refills will have to be obtained through Dr. Campos. Please make sure to use them as instructed. Failure to do so will result in harm to your health: Aspirin 81 mg, 1 tablet by mouth once a day at 8 AM starting 02/16/19 Vasotec 5 mg, 1 tablet by mouth once a day at 2 PM starting 02/15/19 Crestor 5 mg, 1 tablet by mouth once a day at 8 PM starting 02/15/19 Brilinta 90 mg, 1 tablet by mouth two times a day at 8 AM and 8 PM starting at 8 PM on 02/15/19 Metoprolol Tartrate, 1 tablet by mouth two times a day at 8 AM and 8 PM starting at 8 PM on 02/15/19 Singulair 10 mg, 1 tablet by mouth once a day at 8 PM starting at 8 PM on 02/15/19 4). Do NOT perform any heaving lifting or heavy exercise until you cleared to do so by your luster repairer. 5). You were provided with a copy of your Echocardiogram, Cardiac Catheterization reports, EKGs, and Lab reports. Please bring these with you to your appointment with Dr. Campos and to your appointment with the Engineer Assistant that Dr. Campos will send you to. 6). Please take care, be well, be happy, have regular follow ups with Dr. Campos and Engineer Assistant, and take your dancing when you are cleared to do so by your Engineer Assistant. Rocael Fernandez D.O.
--- NOTE | 2019-02-16 13:42 | CARD ---
APPROVED REPORT Date of service: 02/14/2019 EKG Measurement Heart [id number] <Conclusion> Normal sinus rhythm ST & T wave abnormality, consider anterolateral ischemia Prolonged QT Abnormal ECG
--- NOTE | 2019-02-18 11:53 | CATH ---
APPROVED REPORT Date of service: 02/13/2019 Procedure(s) performed: Cardiac catheterization and Angioplasty with Stent of LAD. HISTORY The patient is a 48 year-old male with a history of : hypertension, dyslipidemia. INDICATION The indication(s) include : STEMI . Vessel Analysis The patient's coronary anatomy is left dominant. The left main coronary artery is a large size vessel without significant stenosis. The left anterior descending artery is a large size vessel . There is a 100% stenosis in the proximal segment. The circumflex artery is a medium size vessel without stenosis. The right coronary artery is a medium size vessel without stenosis. Left Ventricle The left ventricle is normal in size with abnorma; contractility. The left ventricular ejection fraction is estimated to be 45%. The left ventricular end diastolic pressure is 18 mmHg. There was no gradient across the aortic valve upon pullback. PCI Technique Lesion Anticoagulation was achieved with Heparin. Percutaneous coronary intervention was performed on the proximal left anterior descending artery segment. The lesion stenosis prior to intervention was 100% with JAMIE 0 flow. A 6F XBLAD Guide Catheter was used to engage the LM ostium. BALLOON DILATION A Balloon catheter 2.5X12 was inserted and inflated up to 8atm for 20seconds. STENT DEPLOYMENT A drug-eluting stent 3 stents with 3.0X12 was inserted and inflated up to 12atm for 30seconds. Succeful PTCA and Stent of Proximal LAD with post procedure 0% residual stenosis. Conclusion Successful PTCA and Stent LAD. Recommendations Daily ASA with Plavix for at least one year
== END 2019-02-15 11:50 | disposition home or self-care (01) | DRG 853 ==
LOC: C.ER 03:44 → C.9I 04:09
PROVIDERS: ADMIT Hospitalist; ATTEND Hospitalist
PROC: 027036Z Dilation of Coronary Artery, One Artery with Three Drug-eluting Intraluminal Devices, Percutaneous Approach (ICD-10-PCS; principal; 2019-02-13)
PROC: 4A023N7 Measurement of Cardiac Sampling and Pressure, Left Heart, Percutaneous Approach (ICD-10-PCS; 2019-02-13)
PROC: B2151ZZ Fluoroscopy of Left Heart using Low Osmolar Contrast (ICD-10-PCS; 2019-02-13)
PROC: B2111ZZ Fluoroscopy of Multiple Coronary Arteries using Low Osmolar Contrast (ICD-10-PCS; 2019-02-13)
DX: I21.02 ST elevation (STEMI) myocardial infarction involving left anterior descending coronary artery (principal); I25.110 Atherosclerotic heart disease of native coronary artery with unstable angina pectoris; I10 Essential (primary) hypertension; E78.00 Pure hypercholesterolemia, unspecified; J98.11 Atelectasis; E78.5 Hyperlipidemia, unspecified; K21.9 Gastro-esophageal reflux disease without esophagitis; I25.2 Old myocardial infarction; Z87.891 Personal history of nicotine dependence